=== PATIENT | female | born 1995 | race Native Hawaiian/Other Pacific Islander ===

== ENCOUNTER 2019-11-12 15:55 | Observation (INO) | payer OTHER ==
[~2019-11-12] VITALS: Ht 160 cm; Wt 78.2 kg
[2019-11-12 16:06] VITALS: BP 110/80; TEMP 97.7
[2019-11-12] MEDS ORDERED: ORTHOTRI28 PO (16:21)
[2019-11-12] MEDS ORDERED: PHENTERMINE37.5 MG PO (16:25)
[2019-11-12 16:40] LABS: PLATELET COUNT 311 K/uL (152-353)
[2019-11-12 17:43] LABS: POTASSIUM 3.8 mmol/L (3.6-5.2)
[2019-11-12 22:41] VITALS: BP 116/77; TEMP 98.7; Ht 160 cm; Wt 78.2 kg
[2019-11-13 04:00] VITALS: BP 89/46; TEMP 98.6
[2019-11-13 08:00] VITALS: BP 90/49; TEMP 97.8
[2019-11-13 09:30] LABS: POTASSIUM 3.4 mmol/L (3.6-5.2)
[2019-11-13 09:43] LABS: PLATELET COUNT 244 K/uL (152-353)
[2019-11-13 12:00] VITALS: BP 96/55; TEMP 98.4
[2019-11-13 16:00] VITALS: BP 91/50; TEMP 98
[2019-11-13] MEDS ORDERED: ONDA4TAB3 PO (18:06)
[2019-11-13] MEDS ORDERED: TRAM50TA PO (18:07)
== END 2019-11-13 16:50 | disposition home or self-care (01) ==
LOC: ED 15:55 → MED/SURG 20:40
PROVIDERS: Family Medicine; ADMIT Internal Medicine
DX: R10.31 Right lower quadrant pain (principal); D72.828 Other elevated white blood cell count; E28.2 Polycystic ovarian syndrome
CPT/HCPCS: 80053; 81000; 81025; 82150; 83690; 85027; 96365; 96366; 96374; 99220; 99284; G0378; J2405; J2543; Q9963

== ENCOUNTER 2022-01-28 10:23 | Outpatient (CLI) | payer BC ==
[~2022-01-28 10:23] MED LIST: ONDA4TAB3 PO; ORTHOTRI28 PO; PHENTERMINE37.5 MG PO; TRAM50TA PO
== END 2022-01-28 20:30 | disposition home or self-care (01) ==
LOC: US 10:23
PROVIDERS: ATTEND Nurse Practitioner Family
DX: R74.01 Elevation of levels of liver transaminase levels (principal)

== ENCOUNTER 2022-06-25 14:25 | Emergency (ER) | payer BC ==
[~2022-06-25] VITALS: Ht 160 cm; Wt 78.0 kg
[2022-06-25 15:28] LABS: PLATELET COUNT 310 K/uL (152-353)
[2022-06-25 15:34] LABS: POTASSIUM 3.7 mmol/L (3.6-5.2)
[2022-06-25 16:21] VITALS: BP 124/73; TEMP 99.1
== END 2022-06-25 16:21 | disposition home or self-care (01) ==
LOC: ED 14:25
PROVIDERS: Emergency Medicine
DX: N86 Erosion and ectropion of cervix uteri (principal); Z3A.01 Less than 8 weeks gestation of pregnancy
CPT/HCPCS: 80053; 81000; 84702; 85027; 87490; 87590; 99284